=== PATIENT | male | born 1990 | race Caucasian/White ===

== ENCOUNTER → 2020-11-23 10:04 | Outpatient (CLI) | payer OTHER, SELFPAY ==
[2020-11-23 12:42] LABS: Erythrocyte Sedimentation Rate 12 mm/hr (0-20)
== END ==
PROVIDERS: PCP Family Medicine; Referring Provider Family Medicine; Visit Provider Family Medicine
DX: R21 Rash and other nonspecific skin eruption (principal)
CPT/HCPCS: 36415; 85652